=== PATIENT | female | born 1985 | race Caucasian/White ===

== ENCOUNTER → 2018-10-31 12:23 | Outpatient (CLI) | payer OTHER, SELFPAY ==
--- NOTE | 2018-10-31 | DI.MRI.S_ITS ---
PROCEDURE: MR THORACIC SPINE WO CON INDICATIONS: PAIN IN THORACIC SPINE TECHNIQUE: Noncontrast sagittal T1 spine echo and T2 fast spin echo, sagittal STIR, axial T1 and T2 fast spin echo through the thoracic spine. COMPARISON: None. FINDINGS: Image quality: Excellent. Alignment and Curvature: There is normal bony alignment. Bone Marrow: Marrow is of normal overall signal except for presence of a 4 x 6 mm posterior left paramedian presumed vertebral body hemangioma involving T10. No acute vertebral body compression fractures. Spinal Cord: Visualized spinal cord is normal in size and signal. Paraspinous Soft Tissues: No paravertebral masses. Miscellaneous: On axial images, central canal and foramina appear widely patent at all scanned levels. IMPRESSION: No significant degenerative disc disease or spinal/foraminal stenosis found. Incidental note is made of a T10 vertebral body 4 x 6 mm presumed to be hemangioma. The spinal canal is widely patent, no paravertebral inflammation is seen. Overall, a source of pain through the thoracic spine is not found. Dictated by: Butch Conde M.D. on 11/02/2018 at 9:40 Approved by: Butch Conde M.D. on 11/02/2018 at 9:45
== END ==
PROVIDERS: Visit Provider Psychiatry & Neurology Neurology
DX: M54.6 Pain in thoracic spine (principal)
CPT/HCPCS: 72146

== ENCOUNTER 2018-12-24 20:30 | Emergency (ER) | payer OTHER, SELFPAY ==
[2018-12-24 20:35] VITALS: BP 157/104; PULSE 104; RESP 14; TEMP 36.5; O2SAT 97; BMI 27.4
--- NOTE | 2018-12-24 20:48 | DI.CT.S_ITS ---
PROCEDURE: CT ANGIO CHEST PE PROTOCOL INDICATIONS: persistent cough, SOB, radiation to back, sent by PCP TECHNIQUE: After the administration of intravenous contrast, 2 mm thick sections acquired from the pulmonary apices to the posterior costophrenic angles. 3-dimensional maximum intensity projection (MIP) coronal and sagittal reformats were then acquired through the thorax. For radiation dose reduction, the following was used: automated exposure control, adjustment of mA and/or kV according to patient size. COMPARISON: None. FINDINGS: Image quality: Excellent. Pulmonary arteries: Pulmonary arteries are normal in size, and demonstrate no intraluminal filling defects to suggest central pulmonary embolism. Lungs and pleura: 4 mm right lower lobe nodules present on series 5 image 133. No pleural effusions or pneumothorax. Central and peripheral airways are patent. Mediastinum: Heart size is normal, without pericardial effusion. No mediastinal or hilar adenopathy. Thoracic aorta is normal in caliber and enhancement. Esophagus is normal in caliber, without hiatal hernia. Bones and chest wall: No suspicious bony lesions. Ribs and thoracic spine appear intact throughout. Thyroid gland is unremarkable. No axillary or supraclavicular adenopathy. Abdomen: There is mildly prominent. Otherwise, visualized upper abdominal solid organs appear normal in the early arterial phase of enhancement. IMPRESSION: 1. No pulmonary embolism. No effusions or consolidations. 2. 4 mm right lower lobe nodule. It is overall nonspecific. No priors are available for comparison. Recommend interval follow as below, as appropriate. Fleischner Society criteria for lung nodule followup. Nodule size (mm)Low-risk patientHigh-risk patient<6 (single or multiple)No routine followup/Optional CT at 12 months.6-8 (single or multiple)CT at 6-12 months; then noptional CT at 18-24 monthsCT at 6-12 months, then 18-24 months i>8 (single)CT at 3 months, then optional CT at 18-24 months if no change.Initial follow-up CT at 3-6 months, then 18-24 months >8 (multiple)CT at 3-[address] at 18-24 months.CT at 3-6 months, then CT at 18-24 months.Non-solid (ground-glass) or partly solid nodules may require longer follow-up to exclude indolent adenocarcinoma. Dictated by: Rimma Pace M.D. on 12/24/2018 at 22:01 Approved by: Rimma Pace M.D. on 12/24/2018 at 22:05
[2018-12-24 21:21] LABS: Add Manual Diff / Slide Review NO; Basophils Absolute Auto 0 /uL (0-100); Basophils Percent Auto 0.5 % (0-2); Eosinophils Absolute Auto 100 /uL (0-450); Eosinophils Percent Auto 1.3 % (2-4); Hematocrit 37.6 % (36-46); Hemoglobin 12.7 g/dL (12.0-16.0); Lymphocytes Absolute Auto 2500 /uL (1100-4500); Lymphocytes Percent Auto 33.7 % (25-40); Mean Corpuscular HGB Conc 33.7 % (30-36); Mean Corpuscular Hemoglobin 27.7 PG (26-34); Monocytes Absolute Auto 500 /uL (0-900); Monocytes Percent Auto 6.3 % (3-14); Neutrophils Absolute Auto 4300 /uL (1500-7000); Neutrophils Percent Auto 58.2 % (50-75); Platelet Count 190 X10^3/uL (150-400); Red Blood Cell Count 4.58 X10^6/uL (4.0-5.2); Red Cell Distribution Width 14.1 % (11.6-14.8); White Blood Cell Count 7.3 X10^3/uL (4.5-11.0)
--- NOTE | 2018-12-24 21:22 | ED.SOB ---
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 Patient states she has been suffering from some shortness of breath and nonproductive cough for many months and has been treated as an outpatient by her primary care providers with various antibiotics and bronchodilators. She denies runny nose, sore throat or fever but does admit to some sharp anterior chest pain and occasional pain in her mid back with coughing. She denies nausea or vomiting. She denies control, recent travel or history of blood clot. When attempting to follow up with her primary care provider she was told to present to the emergency department for evaluation of a possible pulmonary embolism MD Complaint: shortness of breath, cough, pain with inspiration and chest pain Onset (ago): month(s) Severity: moderate Consistency/Duration: constant Relieving factors: nothing Exacerbating factors: nothing Associated symptoms: chest pain, pain with inspiration and cough Treatment prior to arrival: none Related Data Home oxygen amount: none Allergies Allergy/AdvReac Type Severity Reaction Status Date / Time acetaminophen [From Vicodin] Allergy Verified 12/24/18 20:46 carbamazepine [From Tegretol] Allergy Verified 12/24/18 20:46 hydrocodone [From Vicodin] Allergy Verified 12/24/18 20:46 lithium Allergy Verified 12/24/18 20:46 meperidine [From Demerol] Allergy Verified 12/24/18 20:46 methadone Allergy Verified 12/24/18 20:46 morphine Allergy Verified 12/24/18 20:46 Sulfa (Sulfonamide Allergy Verified 12/24/18 20:46 Antibiotics) Tetanus Vaccines and Toxoid Allergy Verified 12/24/18 20:46 Review of Systems Constitutional Denies chills, Denies fever(s), Denies lethargy and Denies weakness Eyes Denies change in vision, Denies eye discharge, Denies irritation and Denies loss of vision ENT Ears, Nose, Mouth, and Throat: Denies change in voice, Denies neck pain and Denies sore throat Cardiovascular Reports chest pain, Denies irregular heart rhythm, Denies lightheadedness, Denies palpitations, Reports dyspnea, Reports dyspnea on exertion and Denies orthopnea Respiratory Reports cough, Reports pain with cough, Reports dyspnea, Reports dyspnea on exertion and Denies wheezing Gastrointestinal Gastrointestinal: Denies abdominal pain, Denies change in bowel habits, Denies diarrhea, Denies nausea and Denies vomiting Genitourinary Denies hematuria, Denies flank pain, Denies urinary incontinence and Denies urinary urgency Musculoskeletal Reports back pain and Denies neck pain Integumentary/Breasts Denies pruritus, Denies erythema, Denies rash and Denies wounds Neurologic Denies confusion, Denies loss of vision and Denies weakness Psychiatric Denies anxiety, Denies confusion, Denies depression, Denies homicidal ideation and Denies suicidal ideation Endocrine Denies palpitations Hematologic/Lymphatic Denies easy bruising Allergic/Immunologic Denies wheezing PFSH Social History Smoking Status: Unknown if ever smoked Social History (Updated 12/25/18 @ 04:14 by Chi Frias DO) Smoking Status: Never smoker Exam Narrative Exam Narrative: GENERAL: 33-year-old female appears stated age, obviously anxious s. HEAD: Atraumatic. Normocephalic. No temporal or scalp tenderness. EYES: Pupils equal round and reactive. Extraocular motions intact. No scleral icterus. No injection or drainage. ENT: Nose without bleeding, purulent drainage or septal hematoma. Throat without erythema, tonsillar hypertrophy or exudate. Uvula midline. Airway patent. NECK: Trachea midline. No JVD or lymphadenopathy. Supple, nontender, no meningeal signs. CARDIOVASCULAR: Regular rate and rhythm without murmurs, gallops, or rubs. RESPIRATORY: Clear to auscultation. Breath sounds equal bilaterally. No wheezes, rales, or rhonchi. GASTROINTESTINAL: Abdomen soft, non-tender, nondistended. No hepato-splenomegaly, or palpable masses. No guarding. EXTREMITIES: No clubbing, cyanosis, or edema. No joint tenderness, effusion, or edema noted. BACK: Nontender without deformity or crepitance. No flank tenderness. NEURO: AOx3. SKIN: No rash or erythema. Initial Vital Signs Initial Vital Signs: Vital Signs Temperature 97.7 F 12/24/18 20:35 Pulse Rate 104 H 12/24/18 20:35 Respiratory Rate 14 12/24/18 20:35 Blood Pressure 157/104 H 12/24/18 20:35 Pulse Oximetry 97 12/24/18 20:35 Course Orders Ordered: ED Orders 12/24/18 20:48 CT angio chest PE protocol Stat 12/24/18 21:15 Basic Metabolic Panel Stat Complete Blood Count AUTO DIFF Stat Procalcitonin Stat Vital Signs - 8 hr 12/24/18 20:35 12/24/18 23:08 12/24/18 23:10 Temperature 97.7 F Pulse Rate 104 H 75 Respiratory Rate 14 Blood Pressure 157/104 H 102/54 L Blood Pressure [Left Arm] 102/54 L Pulse Oximetry 97 99 MDM - SOB/Dyspnea Lab Data Result diagrams: 12/24/18 21:15 12/24/18 21:15 Lab Results 12/24/18 12/24/18 12/24/18 Range/Units 21:15 21:15 21:15 WBC 7.3 (4.5-11.0) X10^3/uL RBC 4.58 (4.0-5.2) X10^6/uL Hgb 12.7 (12.0-16.0) g/dL Hct 37.6 (36-46) % MCV 82.0 (80-100) fL MCH 27.7 (26-34) PG MCHC 33.7 (30-36) % RDW 14.1 (11.6-14.8) % Plt Count 190 (150-400) X10^3/uL Neut % (Auto) 58.2 (50-75) % Lymph % (Auto) 33.7 (25-40) % Warrick % (Auto) 6.3 (3-14) % Eos % (Auto) 1.3 L (2-4) % Baso % (Auto) 0.5 (0-2) % Neut # (Auto) 4300 (7837-9522) /uL Lymph # (Auto) 2500 (8136-7789) /uL Warrick # (Auto) 500 (0-900) /uL Eos # (Auto) 100 (0-450) /uL Baso # (Auto) 0 (0-100) /uL Sodium 140 (137-145) mmol/L Potassium 4.1 (3.4-5.1) mmol/L Chloride 107 (98-107) mmol/L Carbon Dioxide 23 (22-32) mmol/L BUN 15 (7-17) mg/dL Creatinine 0.70 (0.52-1.04) mg/dL Estimated GFR > 60.0 (>60) mL/min BUN/Creatinine Ratio 21.4 (6-22) Glucose 90 (70-100) mg/dL Calcium 10.4 H (8.4-10.2) mg/dL Procalcitonin < 0.05 (<0.5) ng/mL Urine Dip Bedside Urine Glucose Negative Bedside Urine Bilirubin - Negative Bedside Urine Ketone - Negative Urine Specific Logan 1.010 Bedside Urine Occult Blood - Negative Bedside Urine pH 5.5 Bedside Urine Protein - Negative Bedside Urine Urobilinogen - Negative Bedside Urine Nitrite - Negative Bedside Urine Leukocytes - Negative Esterase Imaging Data CT scan - chest: Radiologist's impression: [address] [address] [address] Scan Report Signed Patient: Collette AdairnMR#: [id number] : 1985Acct:[id number] Age/Sex: 33 / FDate of Service: 12/24/18 Loc: ED Accession Number: [id number] Procedure: CT angio chest PE protocol Ordering Provider: Chi Frias D.O. PROCEDURE: CT ANGIO CHEST PE PROTOCOL INDICATIONS: persistent cough, SOB, radiation to back, sent by PCP TECHNIQUE: After the administration of intravenous contrast, 2 mm thick sections acquired from the pulmonary apices to the posterior costophrenic angles. 3-dimensional maximum intensity projection (MIP) coronal and sagittal reformats were then acquired through the thorax. For radiation dose reduction, the following was used: automated exposure control, adjustment of mA and/or kV according to patient size. COMPARISON: None. FINDINGS: Image quality: Excellent. Pulmonary arteries: Pulmonary arteries are normal in size, and demonstrate no intraluminal filling defects to suggest central pulmonary embolism. Lungs and pleura: 4 mm right lower lobe nodules present on series 5 image 133. No pleural effusions or pneumothorax. Central and peripheral airways are patent. Mediastinum: Heart size is normal, without pericardial effusion. No mediastinal or hilar adenopathy. Thoracic aorta is normal in caliber and enhancement. Esophagus is normal in caliber, without hiatal hernia. Bones and chest wall: No suspicious bony lesions. Ribs and thoracic spine appear intact throughout. Thyroid gland is unremarkable. No axillary or supraclavicular adenopathy. Abdomen: There is mildly prominent. Otherwise, visualized upper abdominal solid organs appear normal in the early arterial phase of enhancement. IMPRESSION: 1. No pulmonary embolism. No effusions or consolidations. 2. 4 mm right lower lobe nodule. It is overall nonspecific. No priors are available for comparison. Recommend interval follow as below, as appropriate. Fleischner Society criteria for lung nodule followup. Nodule size (mm)Low-risk patientHigh-risk patient<6 (single or multiple)No routine followup/Optional CT at 12 months.6-8 (single or multiple)CT at 6-12 months; then noptional CT at 18-24 monthsCT at 6-12 months, then 18-24 months i>8 (single)CT at 3 months, then optional CT at 18-24 months if no change.Initial follow-up CT at 3-6 months, then 18-24 months >8 (multiple)CT at 3-[address] at 18-24 months.CT at 3-6 months, then CT at 18-24 months.Non-solid (ground-glass) or partly solid nodules may require longer follow-up to exclude indolent adenocarcinoma. Dictated by: Rimma Pace M.D. on 12/24/2018 at 22:01 Approved by: Rimma Pace M.D. on 12/24/2018 at 22:05 [facility] Narrative Medical decision making narrative: Multiple etiologies for patient's symptoms considered including: [Atypical pneumonia versus pulmonary embolism versus allergic rhinitis versus other] Patient's symptoms improved or duration of stay with above-stated therapies. Findings and discharge diagnosis discussed with patient/family followed by verbalization of understanding Return precautions discussed with patient/family whom verbalize understanding. Discharge Plan Departure Patient Disposition: Home Clinical Impression: Cough, persistent Discharge Date/Time: 12/24/18 23:12 Interventions: ED Discharge Assessment Last Done: 12/24/18 23:10 Instructions: Cough Activity Restrictions/Additional Instructions: *You have been diagnosed with [chronic cough] *What to do: *Take medications as directed: Consider tumy-aap-dspafgd antihistamines *Follow up with your primary care provider in 2-3 days, call for an appointment. Let them know you were seen in the Emergency Department and that we ask that you be seen in follow up *Return to ER if you should have any new, worsening or concerning symptoms
--- NOTE | 2018-12-24 21:24 | PC.NURSE ---
Pt refused preg test. States there is no way she is . Notified,
[2018-12-24 21:32] LABS: BUN Creatinine Ratio 21.4 (6-22); Blood Urea Nitrogen 15 mg/dL (7-17); Calcium 10.4 mg/dL (8.4-10.2); Carbon Dioxide 23 mmol/L (22-32); Chloride 107 mmol/L (98-107); Estimated Glomerular Filt Rate > 60.0 mL/min (>60); Glucose 90 mg/dL (70-100); HEMOLYSIS < 15 (0-50); Potassium 4.1 mmol/L (3.4-5.1); Sodium 140 mmol/L (137-145)
[2018-12-24 21:47] LABS: Procalcitonin < 0.05 ng/mL (<0.5)
[2018-12-24 23:08] VITALS: BP 102/54
[2018-12-24 23:10] VITALS: BP 102/54; PULSE 75; O2SAT 99
--- NOTE | 2018-12-25 04:09 | ED_ITS ---
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 Patient states she has been suffering from some shortness of breath and nonproductive cough for many months and has been treated as an outpatient by her primary care providers with various antibiotics and bronchodilators. She denies runny nose, sore throat or fever but does admit to some sharp anterior chest pain and occasional pain in her mid back with coughing. She denies nausea or vomiting. She denies control, recent travel or history of blood clot. When attempting to follow up with her primary care provider she was told to present to the emergency department for evaluation of a possible pulmonary embolism MD Complaint: shortness of breath, cough, pain with inspiration and chest pain Onset (ago): month(s) Severity: moderate Consistency/Duration: constant Relieving factors: nothing Exacerbating factors: nothing Associated symptoms: chest pain, pain with inspiration and cough Treatment prior to arrival: none Related Data Home oxygen amount: none Allergies Allergy/AdvReac Type Severity Reaction Status Date / Time acetaminophen [From Vicodin] Allergy Verified 12/24/18 20:46 carbamazepine [From Tegretol] Allergy Verified 12/24/18 20:46 hydrocodone [From Vicodin] Allergy Verified 12/24/18 20:46 lithium Allergy Verified 12/24/18 20:46 meperidine [From Demerol] Allergy Verified 12/24/18 20:46 methadone Allergy Verified 12/24/18 20:46 morphine Allergy Verified 12/24/18 20:46 Sulfa (Sulfonamide Allergy Verified 12/24/18 20:46 Antibiotics) Tetanus Vaccines and Toxoid Allergy Verified 12/24/18 20:46 Review of Systems Constitutional Denies chills, Denies fever(s), Denies lethargy and Denies weakness Eyes Denies change in vision, Denies eye discharge, Denies irritation and Denies loss of vision ENT Ears, Nose, Mouth, and Throat: Denies change in voice, Denies neck pain and Denies sore throat Cardiovascular Reports chest pain, Denies irregular heart rhythm, Denies lightheadedness, Denies palpitations, Reports dyspnea, Reports dyspnea on exertion and Denies orthopnea Respiratory Reports cough, Reports pain with cough, Reports dyspnea, Reports dyspnea on exertion and Denies wheezing Gastrointestinal Gastrointestinal: Denies abdominal pain, Denies change in bowel habits, Denies diarrhea, Denies nausea and Denies vomiting Genitourinary Denies hematuria, Denies flank pain, Denies urinary incontinence and Denies urinary urgency Musculoskeletal Reports back pain and Denies neck pain Integumentary/Breasts Denies pruritus, Denies erythema, Denies rash and Denies wounds Neurologic Denies confusion, Denies loss of vision and Denies weakness Psychiatric Denies anxiety, Denies confusion, Denies depression, Denies homicidal ideation and Denies suicidal ideation Endocrine Denies palpitations Hematologic/Lymphatic Denies easy bruising Allergic/Immunologic Denies wheezing PFSH Social History Smoking Status: Unknown if ever smoked Social History (Updated 12/25/18 @ 04:14 by Chi Frias DO) Smoking Status: Never smoker Exam Narrative Exam Narrative: GENERAL: 33-year-old female appears stated age, obviously anxious s. HEAD: Atraumatic. Normocephalic. No temporal or scalp tenderness. EYES: Pupils equal round and reactive. Extraocular motions intact. No scleral icterus. No injection or drainage. ENT: Nose without bleeding, purulent drainage or septal hematoma. Throat without erythema, tonsillar hypertrophy or exudate. Uvula midline. Airway patent. NECK: Trachea midline. No JVD or lymphadenopathy. Supple, nontender, no meningeal signs. CARDIOVASCULAR: Regular rate and rhythm without murmurs, gallops, or rubs. RESPIRATORY: Clear to auscultation. Breath sounds equal bilaterally. No wheezes, rales, or rhonchi. GASTROINTESTINAL: Abdomen soft, non-tender, nondistended. No hepato-splenomegal y, or palpable masses. No guarding. EXTREMITIES: No clubbing, cyanosis, or edema. No joint tenderness, effusion, or edema noted. BACK: Nontender without deformity or crepitance. No flank tenderness. NEURO: AOx3. SKIN: No rash or erythema. Initial Vital Signs Initial Vital Signs: Vital Signs Temperature 97.7 F 12/24/18 20:35 Pulse Rate 104 H 12/24/18 20:35 Respiratory Rate 14 12/24/18 20:35 Blood Pressure 157/104 H 12/24/18 20:35 Pulse Oximetry 97 12/24/18 20:35 Course Orders Ordered: ED Orders 12/24/18 20:48 CT angio chest PE protocol Stat 12/24/18 21:15 Basic Metabolic Panel Stat Complete Blood Count AUTO DIFF Stat Procalcitonin Stat Vital Signs - 8 hr 12/24/18 20:35 12/24/18 23:08 12/24/18 23:10 Temperature 97.7 F Pulse Rate 104 H 75 Respiratory Rate 14 Blood Pressure 157/104 H 102/54 L Blood Pressure [Left Arm] 102/54 L Pulse Oximetry 97 99 MDM - SOB/Dyspnea Lab Data Result diagrams: 12/24/18 21:15 12/24/18 21:15 Lab Results 12/24/18 12/24/18 12/24/18 Range/Units 21:15 21:15 21:15 WBC 7.3 (4.5-11.0) X10^3/uL RBC 4.58 (4.0-5.2) X10^6/uL Hgb 12.7 (12.0-16.0) g/dL Hct 37.6 (36-46) % MCV 82.0 (80-100) fL MCH 27.7 (26-34) PG MCHC 33.7 (30-36) % RDW 14.1 (11.6-14.8) % Plt Count 190 (150-400) X10^3/uL Neut % (Auto) 58.2 (50-75) % Lymph % (Auto) 33.7 (25-40) % [place] % (Auto) 6.3 (3-14) % Eos % (Auto) 1.3 L (2-4) % Baso % (Auto) 0.5 (0-2) % Neut # (Auto) 4300 (7753-9293) /uL Lymph # (Auto) 2500 (8838-1080) /uL [place] # (Auto) 500 (0-900) /uL Eos # (Auto) 100 (0-450) /uL Baso # (Auto) 0 (0-100) /uL Sodium 140 (137-145) mmol/L Potassium 4.1 (3.4-5.1) mmol/L Chloride 107 (98-107) mmol/L Carbon Dioxide 23 (22-32) mmol/L BUN 15 (7-17) mg/dL Creatinine 0.70 (0.52-1.04) mg/dL Estimated GFR > 60.0 (>60) mL/min BUN/Creatinine Ratio 21.4 (6-22) Glucose 90 (70-100) mg/dL Calcium 10.4 H (8.4-10.2) mg/dL Procalcitonin < 0.05 (<0.5) ng/mL Urine Dip Bedside Urine Glucose Negative Bedside Urine Bilirubin - Negative Bedside Urine Ketone - Negative Urine Specific [place] 1.010 Bedside Urine Occult Blood - Negative Bedside Urine pH 5.5 Bedside Urine Protein - Negative Bedside Urine Urobilinogen - Negative Bedside Urine Nitrite - Negative Bedside Urine Leukocytes - Negative Esterase Imaging Data CT scan - chest: Radiologist's impression: [address] [address] [address] Scan Report Signed Patient: Collette AdairnMR#: [id number] : 1985Acct:[id number] Age/Sex: 33 / FDate of Service: 12/24/18 Loc: ED Accession Number: [id number] Procedure: CT angio chest PE protocol Ordering Provider: Chi Frias D.O. PROCEDURE: CT ANGIO CHEST PE PROTOCOL INDICATIONS: persistent cough, SOB, radiation to back, sent by PCP TECHNIQUE: After the administration of intravenous contrast, 2 mm thick sections acquired from the pulmonary apices to the posterior costophrenic angles. 3-dimensional maximum intensity projection (MIP) coronal and sagittal reformats were then acquired through the thorax. For radiation dose reduction, the following was used: automated exposure co ntrol, adjustment of mA and/or kV according to patient size. COMPARISON: None. FINDINGS: Image quality: Excellent. Pulmonary arteries: Pulmonary arteries are normal in size, and demonstrate no intraluminal filling defects to suggest central pulmonary embolism. Lungs and pleura: 4 mm right lower lobe nodules present on series 5 image 133. No pleural effusions or pneumothorax. Central and peripheral airways are patent. Mediastinum: Heart size is normal, without pericardial effusion. No mediastinal or hilar adenopathy. Thoracic aorta is normal in caliber and enhancement. Esophagus is normal in caliber, without hiatal hernia. Bones and chest wall: No suspicious bony lesions. Ribs and thoracic spine appear intact throughout. Thyroid gland is unremarkable. No axillary or supraclavicular adenopathy. Abdomen: There is mildly prominent. Otherwise, visualized upper abdominal solid organs appear normal in the early arterial phase of enhancement. IMPRESSION: 1. No pulmonary embolism. No effusions or consolidations. 2. 4 mm right lower lobe nodule. It is overall nonspecific. No priors are available for comparison. Recommend interval follow as below, as appropriate. Fleischner Society criteria for lung nodule followup. Nodule size (mm)Low-risk patientHigh-risk patient<6 (single or multiple)No routine followup/Optional CT at 12 months.6-8 (single or multiple)CT at 6-12 months; then noptional CT at 18-24 monthsCT at 6-12 months, then 18-24 months i>8 (single)CT at 3 months, then optional CT at 18-24 months if no change.Initial follow-up CT at 3- 6 months, then 18-24 months >8 (multiple)CT at 3-[address] at 18- 24 months.CT at 3-6 months, then CT at 18-24 months.Non-solid (ground-glass) or partly solid nodules may require longer follow-up to exclude indolent adenocarcinoma. Dictated by: Rimma Pace M.D. on 12/24/2018 at 22:01 Approved by: Rimma Pace M.D. on 12/24/2018 at 22:05 [facility] Narrative Medical decision making narrative: Multiple etiologies for patient's symptoms considered including: [Atypical pneumonia versus pulmonary embolism versus allergic rhinitis versus other] Patient's symptoms improved or duration of stay with above-stated therapies. Findings and discharge diagnosis discussed with patient/family followed by verbalization of understanding Return precautions discussed with patient/family whom verbalize understanding. Discharge Plan Departure Patient Disposition: Home Clinical Impression: Cough, persistent Discharge Date/Time: 12/24/18 23:12 Interventions: ED Discharge Assessment Last Done: 12/24/18 23:10 Instructions: Cough Activity Restrictions/Additional Instructions: *You have been diagnosed with [chronic cough] *What to do: *Take medications as directed: Consider [id number] antihistamines *Follow up with your primary care provider in 2-3 days, call for an appointment. Let them know you were seen in the Emergency Department and that we ask that you be seen in follow up *Return to ER if you should have any new, worsening or concerning symptoms
== END 2018-12-24 23:12 | disposition home or self-care (01) ==
PROVIDERS: Emergency Provider Emergency Medicine
DX: R05 Cough (principal); R06.02 Shortness of breath
CPT/HCPCS: 36415; 71275; 80048; 81003; 84145; 85025; 99282; 99284

== ENCOUNTER 2019-07-02 10:18 | Emergency (ER) | payer OTHER, SELFPAY ==
[2019-07-02 10:25] VITALS: BP 125/58; PULSE 100; RESP 18; TEMP 36.7; O2SAT 98; BMI 27.8
--- NOTE | 2019-07-02 10:33 | ED_ITS ---
HPI - Female Genitourinary General Chief complaint: Urogenital-Female Stated complaint: kidney stones Time Seen by Provider: 07/02/19 10:26 Source: patient Mode of arrival: Ambulatory Limitations: no limitations History of Present Illness HPI Narrative: Patient is a 34-year-old female with history of Swznlin-Bqpyt-O ooth presenting from her PCP office with bilateral back pain progressively getting worse and decreased urination. Patient thought that she may have had a kidney stone it started on her left side as progressively gotten worse. She says it's now bilateral it's radiating around both sides of her abdomen. She has been drinking plenty of fluids however last time she urinated was yesterday. She is in substantial pain now. Typically her pain is controlled with tramadol. She feels nauseous she has not vomited. She says that she passed out 2 days ago from the pain but nothing since then. Female Urogenital Radiation: L Flank and R Flank Severity: severe Quality: Sharp Duration: constant Relieving factors: none Related Data Home Medications Medication Instructions Recorded Confirmed potassium chloride [Klor-Con M20] 20 meq PO DAILY 07/02/19 07/02/19 topiramate [Topamax] 100 mg PO BID 07/02/19 Previous Rx's Medication Instructions Recorded cephalexin [Keflex] 500 mg PO Q8H #21 cap 07/02/19 Allergies Allergy/AdvReac Type Severity Reaction Status Date / Time acetaminophen [From Vicodin] Allergy Verified 07/02/19 10:25 carbamazepine [From Tegretol] Allergy Verified 07/02/19 10:25 hydrocodone [From Vicodin] Allergy Verified 07/02/19 10:25 lithium Allergy Verified 07/02/19 10:25 meperidine [From Demerol] Allergy Verified 07/02/19 10:25 methadone Allergy Verified 07/02/19 10:25 morphine Allergy Verified 07/02/19 10:25 Sulfa (Sulfonamide Allergy Verified 07/02/19 10:25 Antibiotics) Tetanus Vaccines and Toxoid Allergy Verified 07/02/19 10:25 Review of Systems Review of Systems Narrative: GENERAL: Denies chills, fatigue, malaise, fever, sweats, travel HEENT: Denies sinus pain, ear pain, sore throat, difficulty swallowing, neck pain RESPIRATORY: Denies dyspnea, cough, wheezing, hemoptysis, sputum. CARDIOVASCULAR: Denies chest pain, palpitations, orthopnea, edema GASTROINTESTINAL: Denies nausea, vomiting, abdominal pain, diarrhea, constipation, melena. : See HPI MUSCULOSKELETAL: Denies weakness, joint pain, or bony pain SKIN: No rash, no erythema, no pruritus NEUROLOGIC: Denies weakness, dizziness, headache, numbness, change in speech, confusion PSYCHIATRIC: No concerning psychosocial issues. 12 point review of systems is negative except for those stated above and HPI Patient History Medical History Charcot-Donya disease (Acute) alcohol intake frequency: holidays/special occasions only Substance Use Type: does not use Exam Initial Vital Signs Initial Vital Signs: Vital Signs Temperature 98.1 F 07/02/19 10:25 Pulse Rate 100 H 07/02/19 10:25 Respiratory Rate 18 07/02/19 10:25 Blood Pressure 125/58 L 07/02/19 10:25 Pulse Oximetry 98 07/02/19 10:25 GENERAL: None female appears extremely uncomfortable and in no acute distress. HEENT: Head atraumatic,EOMI, pupils reactive, face symmetric, moist mucous membranes CARDIOVASCULAR: Regular rate and rhythm without murmurs, rubs or gallops. RESPIRATORY: Breath sounds equal bilaterally, no wheezes rales or rhonchi. ABDOMEN: Soft, nontender. Normoactive bowel sounds all 4 quadrants. No guarding or rebound. : No CVA tenderness EXTREMITIES: Normal range of motion, no clubbing or edema. Neurovascularly intact NEUROLOGICAL: Alert and oriented x4.Normal gait and speech. Cranial nerves II through XII grossly intact. SKIN: Warm, dry, no laceration, no petechiae, no rashes or lesions. Course Orders Ordered: ED Orders 07/02/19 10:58 Complete Blood Count AUTO DIFF Stat Comprehensive Metabolic Panel Stat Lipase Stat Test Serum,Qual Stat 07/02/19 11:11 CT abdomen pelvis w con Stat 07/02/19 11:47 Urinalysis and Microscopic Stat Discontinued Medications Diphenhydramine HCl (Benadryl) 25 mg IV NOW ONE Stop: 07/02/19 10:38 Last Admin: 07/02/19 10:51 Dose: 25 mg Documented by: SCANZAHRAA Diphenhydramine HCl (Benadryl) 25 mg IV NOW ONE Stop: 07/02/19 11:34 Last Admin: 07/02/19 11:35 Dose: 25 mg Documented by: NOAM Hydromorphone HCl (Dilaudid) 0.5 mg IV NOW ONE Stop: 07/02/19 10:38 Last Admin: 07/02/19 10:51 Dose: 0.5 mg Documented by: NOAM Ceftriaxone Sodium/Dextrose (Rocephin) 1 gm in 50 mls @ 100 mls/hr IV NOW ONE Stop: 07/02/19 12:37 Last Infusion: 07/02/19 13:43 Dose: 0 mls/hr Documented by: Admin: 07/02/19 12:34 Dose: 100 mls/hr Documented by: NOAM Ketorolac Tromethamine (Toradol) 30 mg IV NOW ONE Stop: 07/02/19 11:53 Last Admin: 07/02/19 11:57 Dose: 30 mg Documented by: NOAM Ondansetron HCl (Zofran) 4 mg IV NOW ONE Stop: 07/02/19 10:38 Last Admin: 07/02/19 10:51 Dose: 4 mg Documented by: NOAM Vital Signs Vital signs: Vital Signs - 8 hr 07/02/19 10:25 07/02/19 13:45 Temperature 98.1 F Pulse Rate 100 H 81 Respiratory Rate 18 15 Blood Pressure 125/58 L Blood Pressure [Right Arm] 106/71 Pulse Oximetry 98 97 MDM - Female Genitourinary Lab Data Attestation: I reviewed the patient's lab results. Result diagrams: 07/02/19 10:58 07/02/19 10:58 Labs: Lab Results 07/02/19 07/02/19 07/02/19 Range/Units 10:58 10:58 10:58 WBC 5.4 (4.5-11.0) X10^3/uL RBC 4.40 (4.0-5.2) X10^6/uL Hgb 12.5 (12.0-16.0) g/dL Hct 36.8 (36-46) % MCV 83.8 (80-100) fL MCH 28.5 (26-34) PG MCHC 34.0 (30-36) % RDW 14.1 (11.6-14.8) % Plt Count 183 (150-400) X10^3/uL Neut % (Auto) 63.1 (50-75) % Lymph % (Auto) 29.2 (25-40) % [place] % (Auto) 6.4 (3-14) % Eos % (Auto) 0.8 L (2-4) % Baso % (Auto) 0.5 (0-2) % Neut # (Auto) 3400 (2786-6596) /uL Lymph # (Auto) 1600 (3817-8287) /uL [place] # (Auto) 300 (0-900) /uL Eos # (Auto) 0 (0-450) /uL Baso # (Auto) 0 (0-100) /uL Sodium 137 (137-145) mmol/L Potassium 4.0 (3.4-5.1) mmol/L Chloride 109 H (98-107) mmol/L Carbon Dioxide 20 L (22-32) mmol/L BUN 11 (7-17) mg/dL Creatinine 0.60 (0.52-1.04) mg/dL Estimated GFR > 60.0 (>60) mL/min BUN/Creatinine Ratio 18.3 (6-22) Glucose 88 (70-100) mg/dL Calcium 9.4 (8.4-10.2) mg/dL Total Bilirubin 0.5 (0.2-1.3) mg/dL AST 23 (14-36) IU/L ALT 18 (<35) IU/L Alkaline Phosphatase 42 (38-126) U/L Total Protein 7.7 (6.3-8.2) g/dL Albumin 4.6 (3.5-5.0) g/dL Globulin 3.1 (1.7-4.1) g/dL Albumin/Globulin Ratio 1.5 (1.0-2.8) Lipase 110 (23-300) U/L Serum , Qual Negative (Negative) Urine Color Urine Appearance Urine pH (4.5-8.0) Ur Specific [place] (1.000-1.035) Urine Protein (Negative) Urine Glucose (UA) (Negative) g/dL Urine Ketones (NEGATIVE) Urine Occult Blood (Negative) Urine Nitrate (Negative) Urine Bilirubin (NEGATIVE) Urine Urobilinogen (0.2) E.U./dL Ur Leukocyte Esterase (NEGATIVE) Urine RBC (0-5/HPF) Urine WBC (0-5/HPF) Ur Squamous Epith Cells (0-5/HPF) Urine Bacteria (None) Ur Culture Indicated? 07/02/19 Range/Units 11:47 WBC (4.5-11.0) X10^3/uL RBC (4.0-5.2) X10^6/uL Hgb (12.0-16.0) g/dL Hct (36-46) % MCV (80-100) fL MCH (26-34) PG MCHC (30-36) % RDW (11.6-14.8) % Plt Count (150-400) X10^3/uL Neut % (Auto) (50-75) % Lymph % (Auto) (25-40) % [place] % (Auto) (3-14) % Eos % (Auto) (2-4) % Baso % (Auto) (0-2) % Neut # (Auto) (8848-5557) /uL Lymph # (Auto) (9238-1232) /uL [place] # (Auto) (0-900) /uL Eos # (Auto) (0-450) /uL Baso # (Auto) (0-100) /uL Sodium (137-145) mmol/L Potassium (3.4-5.1) mmol/L Chloride (98-107) mmol/L Carbon Dioxide (22-32) mmol/L BUN (7-17) mg/dL Creatinine (0.52-1.04) mg/dL Estimated GFR (>60) mL/min BUN/Creatinine Ratio (6-22) Glucose (70-100) mg/dL Calcium (8.4-10.2) mg/dL Total Bilirubin (0.2-1.3) mg/dL AST (14-36) IU/L ALT (<35) IU/L Alkaline Phosphatase (38-126) U/L Total Protein (6.3-8.2) g/dL Albumin (3.5-5.0) g/dL Globulin (1.7-4.1) g/dL Albumin/Globulin Ratio (1.0-2.8) Lipase (23-300) U/L Serum , Qual (Negative) Urine Color Yellow Urine Appearance Cloudy Urine pH 7.0 (4.5-8.0) Ur Specific [place] 1.010 (1.000-1.035) Urine Protein Negative (Negative) Urine Glucose (UA) Negative (Negative) g/dL Urine Ketones Negative (NEGATIVE) Urine Occult Blood 2+ H (Negative) Urine Nitrate Negative (Negative) Urine Bilirubin Negative (NEGATIVE) Urine Urobilinogen 0.2 (0.2) E.U./dL Ur Leukocyte Esterase 1+ H (NEGATIVE) Urine RBC 5-10/hpf H (0-5/HPF) Urine WBC 1-5/hpf (0-5/HPF) Ur Squamous Epith Cells 5-10 /hpf H (0-5/HPF) Urine Bacteria Many (>30) H (None) Ur Culture Indicated? Cult not indicated Imaging Data CT scan - abdomen/pelvis: Radiologist's Impression: PROCEDURE: CT ABDOMEN PELVIS W CON INDICATIONS: severe bilateral back pain TECHNIQUE: After the administration of intravenous contrast, 5 mm thick sections acquired from the diaphragm to the symphysis. 5 mm coronal and sagittal reformats were acquired. For radiation dose reduction, the following was used: automated exposure control, adjustment of mA and/or kV according to patient size. COMPARISON: [facility], CT, CT ANGIO CHEST PE PROTOCOL, 12/24/2018, 21:30. FINDINGS: Image quality: Excellent. ABDOMEN: Lung bases: Lung bases are clear. Heart size is normal. Solid organs: Liver is normal in size and enhancement. Gallbladder is unremarkable. Biliary system is non dilated. Pancreas enhances normally. Spleen is normal in size and enhancement. No adrenal nodules. Kidneys demonstrate normal size and enhancement, without hydronephrosis. Peritoneum and bowel: Bowel loops demonstrate normal wall thickness and caliber. The appendix is not visualized; however surgical clips are present in the region of the cecum in the lower quadrant suggesting prior appendectomy. No free fluid or air. Nodes and vessels: No retroperitoneal or mesenteric adenopathy by size criteria. Aorta and inferior vena cava are normal in size. Miscellaneous: No ventral hernias. PELVIS: Genitourinary: Bladder wall thickness is normal. The uterus and ovaries are grossly unremarkable. Miscellaneous: No inguinal hernias or adenopathy. Bones: No suspicious bony lesions. No vertebral body compression fractures. IMPRESSION: 1. No acute intra-abdominal findings. Specifically, no findings to explain back pain. Dictated by: Glenny Echols M.D. on 07/02/2019 at 11:39 Approved by: Glenny Echols M.D. on 07/02/2019 at 11:44 MDM Narrative Medical decision making narrative: Patient is given Dilaudid for pain however she requires 2 doses of Benadryl for the itching. She continues to have pain she is given Toradol. Urine does show bacteria-along with some squamous cells no nitrates or leuks. However she has bilateral kidney pain CT does not show any sort of kidney stone. She does have some urinary retention initially she had 300 in her bladder and was only able to give a small urine sample. She was given a L fluid and encourage multiple times to urinate unfortunately she was still only able to urinate a small amount. She had a repeat bladder scan after 1 L of fluid and she had over 500. Muro catheter was placed. She is also given antibiotics for possible pyelonephritis. However she denies fever and has no leukocytosis. Unclear what exactly is causing her pain. She states pain medication is wearing off however due to her multiple allergies unable to give her anything more. Recommend that she take tramadol at home. I discussed all findings with the patient and , Education has been performed regarding treatment plan, diagnosis, warning signs and symptoms and all concerns have been addressed. Verbally agree with and understood all of the above. Discharge Plan Departure Patient Disposition: Home Clinical Impression: Acute urinary retention UTI (urinary tract infection) Qualifiers: Urinary tract infection type: acute pyelonephritis Qualified Code(s): N10 - Acute pyelonephritis Discharge Date/Time: 07/02/19 14:24 Instructions: DI for Kidney Infection, How to Care for Your Muro Catheter -- Female, DI for Urinary Retention in Women Activity Restrictions/Additional Instructions: *You have been diagnosed with kidney infection *What to do: Blood work and CT scan today were overall reassuring. It does appear that you likely have a kidney infection. Talk to your primary care provider. Muro catheter can likely be removed on Friday. *Continue to take medications as directed Keflex 500 mg 3 times a day for 7 days *Follow up with your primary care provider in 2-3 days *Return to ER if you should have inability to pee, persistent nausea or vomiting worsening pain or any new, worsening or concerning symptoms Prescriptions: New cephalexin [Keflex] 500 mg capsule 500 mg PO Q8H Qty: 21 RF: 0 No Action topiramate [Topamax] 25 mg tablet 100 mg PO BID RF: 0 potassium chloride [Klor-Con M20] 20 mEq tablet,ER particles/crystals 20 meq PO DAILY RF: 0 Referrals: Benny Kyle MD [Primary Care Provider] -
[2019-07-02] MEDS: ONDANSETRON 4 MG/2 ML INJ IV (10:51)
[2019-07-02] MEDS: diphenhydrAMINE 50 MG/ML VIAL 25 MG IV ×2 (10:51→11:35)
[2019-07-02] MEDS: HYDROMORPHONE 0.5 MG INJ IV (10:51)
[2019-07-02 11:06] LABS: Add Manual Diff / Slide Review NO; Basophils Absolute Auto 0 /uL (0-100); Basophils Percent Auto 0.5 % (0-2); Eosinophils Absolute Auto 0 /uL (0-450); Eosinophils Percent Auto 0.8 % (2-4); Hematocrit 36.8 % (36-46); Hemoglobin 12.5 g/dL (12.0-16.0); Lymphocytes Absolute Auto 1600 /uL (1100-4500); Lymphocytes Percent Auto 29.2 % (25-40); Mean Corpuscular Hemoglobin 28.5 PG (26-34); Mean Corpuscular Volume 83.8 fL (80-100); Monocytes Absolute Auto 300 /uL (0-900); Monocytes Percent Auto 6.4 % (3-14); Neutrophils Absolute Auto 3400 /uL (1500-7000); Neutrophils Percent Auto 63.1 % (50-75); Platelet Count 183 X10^3/uL (150-400); Red Cell Distribution Width 14.1 % (11.6-14.8); White Blood Cell Count 5.4 X10^3/uL (4.5-11.0)
--- NOTE | 2019-07-02 11:11 | DI.CT.S_ITS ---
PROCEDURE: CT ABDOMEN PELVIS W CON INDICATIONS: severe bilateral back pain TECHNIQUE: After the administration of intravenous contrast, 5 mm thick sections acquired from the diaphragm to the symphysis. 5 mm coronal and sagittal reformats were acquired. For radiation dose reduction, the following was used: automated exposure control, adjustment of mA and/or kV according to patient size. COMPARISON: [facility], CT, CT ANGIO CHEST PE PROTOCOL, 12/24/2018, 21:30. FINDINGS: Image quality: Excellent. ABDOMEN: Lung bases: Lung bases are clear. Heart size is normal. Solid organs: Liver is normal in size and enhancement. Gallbladder is unremarkable. Biliary system is non dilated. Pancreas enhances normally. Spleen is normal in size and enhancement. No adrenal nodules. Kidneys demonstrate normal size and enhancement, without hydronephrosis. Peritoneum and bowel: Bowel loops demonstrate normal wall thickness and caliber. The appendix is not visualized; however surgical clips are present in the region of the cecum in the lower quadrant suggesting prior appendectomy. No free fluid or air. Nodes and vessels: No retroperitoneal or mesenteric adenopathy by size criteria. Aorta and inferior vena cava are normal in size. Miscellaneous: No ventral hernias. PELVIS: Genitourinary: Bladder wall thickness is normal. The uterus and ovaries are grossly unremarkable. Miscellaneous: No inguinal hernias or adenopathy. Bones: No suspicious bony lesions. No vertebral body compression fractures. IMPRESSION: 1. No acute intra-abdominal findings. Specifically, no findings to explain back pain. Dictated by: Glenny Echols M.D. on 07/02/2019 at 11:39 Approved by: Glenny Echols M.D. on 07/02/2019 at 11:44
[2019-07-02 11:17] LABS: Alanine Aminotransferase 18 IU/L (<35); Albumin 4.6 g/dL (3.5-5.0); Albumin Globulin Ratio 1.5 (1.0-2.8); Alkaline Phosphatase 42 U/L (38-126); Aspartate Aminotransferase 23 IU/L (14-36); BUN Creatinine Ratio 18.3 (6-22); Bilirubin Total 0.5 mg/dL (0.2-1.3); Blood Urea Nitrogen 11 mg/dL (7-17); Calcium 9.4 mg/dL (8.4-10.2); Carbon Dioxide 20 mmol/L (22-32); Chloride 109 mmol/L (98-107); Estimated Glomerular Filt Rate > 60.0 mL/min (>60); Globulin 3.1 g/dL (1.7-4.1); Glucose 88 mg/dL (70-100); HEMOLYSIS < 15 (0-50); Lipase 110 U/L (23-300); Sodium 137 mmol/L (137-145); Total Protein 7.7 g/dL (6.3-8.2)
[2019-07-02 11:28] LABS: Pregnancy Test Serum,Qual Negative (Negative)
[2019-07-02] MEDS: KETOROLAC 60 MG/2 ML VIAL 30 MG IV (11:57)
[2019-07-02 12:03] LABS: Appearance Urine UA CLOUDY; Bilirubin Urine UA NEGATIVE (NEGATIVE); Color Urine UA YELLOW; Glucose Urine UA NEGATIVE (Negative); Ketones Urine UA NEGATIVE (NEGATIVE); Leukocyte Esterase Urine UA 1+ (NEGATIVE); Nitrite Urine UA NEGATIVE (Negative); Occult Blood Urine UA 2+ (Negative); Protein Urine UA NEGATIVE (Negative); Urobilinogen Urine UA 0.2 E.U./dL (0.2)
[2019-07-02 12:05] LABS: Bacteria Urine Many (>30); Culture Indicated Urine Cult Not Indicated; RBC Urine 5-10/HPF (0-5/HPF); Squamous Epithelial Cell Urine 5-10 /HPF (0-5/HPF); WBC Urine 1-5/HPF (0-5/HPF)
[2019-07-02] MEDS: CEFTRIAXONE 1 GM/50 ML FROZ.PIGGY IV (12:34)
[2019-07-02 13:45] VITALS: BP 106/71; PULSE 81; RESP 15; O2SAT 97
--- NOTE | 2019-07-02 14:15 | PC.NURSE ---
salcedo catheter bag changed to leg bag.
== END 2019-07-02 14:24 | disposition home or self-care (01) ==
PROVIDERS: Emergency Provider Emergency Medicine; PCP General Practice
DX: R33.9 Retention of urine, unspecified (principal); N39.0 Urinary tract infection, site not specified; N10 Acute pyelonephritis
CPT/HCPCS: 36415; 51798; 74177; 80053; 81001; 83690; 84703; 85025; 87086; 96365; 96375; 96376; 99284; 99285; J1170; J1200; J1885; J2405; Q9967

== ENCOUNTER 2019-07-03 10:04 | Emergency (ER) | payer OTHER, SELFPAY ==
[2019-07-03 10:10] VITALS: BP 117/65; PULSE 90; RESP 14; TEMP 36.2; O2SAT 99
--- NOTE | 2019-07-03 10:33 | ED.FEMALEGU ---
HPI - Female Genitourinary General Chief complaint: Urogenital-Female Stated complaint: CATHETER GIVING ISSUES Time Seen by Provider: 07/03/19 10:32 Source: patient Mode of arrival: Ambulatory Limitations: no limitations History of Present Illness HPI Narrative: PATIENT IS A 34-YEAR-OLD FEMALE SEEN EVALUATED BY MYSELF YESTERDAY FOUND TO HAVE URINARY RETENTION AND POSSIBLE KIDNEY INFECTION. Presents today for catheter removal. She states that she had some irritation at the catheter site and felt like she had to urinate. Overall her flank pain has improved and she is doing much better. The nurse has already removed her catheter and she has already urinated. Related Data Home Medications Medication Instructions Recorded Confirmed potassium chloride [Klor-Con M20] 20 meq PO DAILY 07/02/19 07/02/19 topiramate [Topamax] 100 mg PO BID 07/02/19 Previous Rx's Medication Instructions Recorded cephalexin [Keflex] 500 mg PO Q8H #21 cap 07/02/19 Allergies Allergy/AdvReac Type Severity Reaction Status Date / Time acetaminophen [From Vicodin] Allergy Verified 07/02/19 10:25 carbamazepine [From Tegretol] Allergy Verified 07/02/19 10:25 hydrocodone [From Vicodin] Allergy Verified 07/02/19 10:25 lithium Allergy Verified 07/02/19 10:25 meperidine [From Demerol] Allergy Verified 07/02/19 10:25 methadone Allergy Verified 07/02/19 10:25 morphine Allergy Verified 07/02/19 10:25 Sulfa (Sulfonamide Allergy Verified 07/02/19 10:25 Antibiotics) Tetanus Vaccines and Toxoid Allergy Verified 07/02/19 10:25 Review of Systems Review of Systems Narrative: GENERAL: Denies chills,fever HEENT: Denies throat pain RESPIRATORY: Denies dyspnea, cough, wheezing CARDIOVASCULAR: Denies chest pain, palpitations GASTROINTESTINAL: Denies nausea, vomiting : See HPI MUSCULOSKELETAL: Denies extremity pain, injury SKIN: No rash, no laceration, no pruritus NEUROLOGIC: Denies weakness, dizziness, headache, numbness 8 point review of systems is negative except for those stated above and HPI Patient History Medical History Charcot-Donya disease (Acute) alcohol intake frequency: holidays/special occasions only Substance Use Type: does not use Exam Initial Vital Signs Initial Vital Signs: Vital Signs Temperature 97.2 F L 07/03/19 10:10 Pulse Rate 90 07/03/19 10:10 Respiratory Rate 14 07/03/19 10:10 Blood Pressure 117/65 07/03/19 10:10 Pulse Oximetry 99 07/03/19 10:10 GENERAL: Well-appearing, well-nourished and in no acute distress. CARDIOVASCULAR: Regular rate peripheral pulses in tact, cap refill <2 sec RESPIRATORY: Clear bilaterally ABDOMEN: Soft, nontender, no guarding or rebound : No flank pain EXTREMITIES: Normal range of motion, no clubbing or edema. Neurovascularly intact NEUROLOGICAL: Cranial nerves II through XII grossly intact. Normal gait and speech. SKIN: Warm, dry, no petechiae, no rashes or lesions. Course Vital Signs Vital signs: Vital Signs - 8 hr 07/03/19 10:10 Temperature 97.2 F L Pulse Rate 90 Respiratory Rate 14 Blood Pressure 117/65 Pulse Oximetry 99 MDM - Female Genitourinary MDM Narrative Medical decision making narrative: Patient has had significant improvement with start of antibiotics. She has urinated this time recommend finishing antibiotics. Urine culture from yesterday did not grow anything. However based on improvement of symptoms with continue antibiotic Discharge Plan Departure Patient Disposition: Home Clinical Impression: Acute urinary retention Instructions: DI for Urinary Retention in Women Activity Restrictions/Additional Instructions: *You have been diagnosed with urinary retention *Continue to take medications as directed Finish antibiotics as prescribed *Follow up with your primary care provider in 2-3 days *Return to ER if you should have any new, worsening or concerning symptoms Prescriptions: No Action topiramate [Topamax] 25 mg tablet 100 mg PO BID RF: 0 potassium chloride [Klor-Con M20] 20 mEq tablet,ER particles/crystals 20 meq PO DAILY RF: 0 cephalexin [Keflex] 500 mg capsule 500 mg PO Q8H Qty: 21 RF: 0 Referrals: Benny Kyle MD [Primary Care Provider] -
== END 2019-07-03 10:48 | disposition home or self-care (01) ==
PROVIDERS: Emergency Provider Emergency Medicine; PCP General Practice
DX: R33.9 Retention of urine, unspecified (principal)
CPT/HCPCS: 99281